=== PATIENT | male | born 1940 | race Caucasian/White ===

== ENCOUNTER 2016-11-15 10:14 | Emergency (ER) | payer OTHER, BC ==
[~2016-11-15] VITALS: Ht 170.2 cm; Wt 102.6 kg
[~2016-11-15 10:14] MED LIST: EPLERENONE25 MG PO; FLOMAX0.4 MG PO; FLONASE16 G1 BOTH NARES; INDOMETHACIN25 MG PO; LEVOTHYROXINE88 MCG PO; LIPITOR80 MG PO; LISINOPRIL20 MG PO; PAXIL40 MG PO; PROTONIX40 MG PO; ZEBETA5 MG PO; ZETIA10 MG PO
[2016-11-15] MEDS ORDERED: CYMBALTA20 MG PO (11:35)
[2016-11-15 12:36] LABS: HEMATOCRIT 39.5 % (38.0-50.0); MCH 29.5 PG (29.0-34.0); MCHC 32.9 G/DL (30.0-36.0); MCV 89.8 FL (86-99); MEAN PLAT.VOLUME 11.1 uM^3 (9.0-12.4); PLATELET COUNT 193 K/uL (156-360)
[2016-11-15 12:48] LABS: TROP-I INTERPRETATION NEGATIVE; TROPONIN-I 0.01 ng/mL (0.0-0.30)
[2016-11-15 13:16] LABS: ANION GAP 10 MEQ/L (2-14); CHLORIDE 104 MEQ/L (99-109); GFR ESTIMATE (CALCULATED) 48 mL/min/; GLUCOSE 135 mg/dL (70-99); POTASSIUM 3.9 MEQ/L (3.7-5.4); SAMPLE HEMOLYSIS CHECK 0; SAMPLE ICTERIC CHECK 0; SAMPLE LIPEMIA CHECK 0; SODIUM 141 MEQ/L (136-147); UREA NITROGEN (BUN) 22 mg/dL (9-23)
[2016-11-15] MEDS ORDERED: AUGMENTIN875 MG PO (13:47)
[2016-11-15 13:50] VITALS: BP 126/73
== END 2016-11-15 14:08 | disposition home or self-care (01) ==
LOC: EME 10:14
PROVIDERS: Emergency Medicine
DX: J40 Bronchitis, not specified as acute or chronic (principal); T36.8X5A Adverse effect of other systemic antibiotics, initial encounter; M25.511 Pain in right shoulder; M25.512 Pain in left shoulder; I25.2 Old myocardial infarction; Z87.442 Personal history of urinary calculi; Z95.5 Presence of coronary angioplasty implant and graft; Z87.891 Personal history of nicotine dependence
CPT/HCPCS: 71020; 73030; 80048; 84484; 85027; 93005; 99281; 99284

== ENCOUNTER 2016-11-19 17:05 | Inpatient (IN) | payer OTHER, BC ==
[~2016-11-19] VITALS: Ht 170.2 cm; Wt 109.9 kg
[~2016-11-19 17:05] MED LIST changes: +AUGMENTIN875 MG PO; +CYMBALTA20 MG PO
[2016-11-19 18:43] LABS: HEMATOCRIT 36.9 % (38.0-50.0); MCH 29.4 PG (29.0-34.0); MCHC 33.1 G/DL (30.0-36.0); MCV 88.9 FL (86-99); MEAN PLAT.VOLUME 10.1 uM^3 (9.0-12.4); PLATELET COUNT 251 K/uL (156-360); RBC DIS.WIDTH-CV 13.7 % (11.8-14.6); RED BLOOD COUNT 4.15 M/uL (4.00-5.50); WHITE BLOOD COUNT 18.3 K/uL (4.1-10.2)
[2016-11-19 18:58] LABS: CHLORIDE 104 mEq/L (99-109); SODIUM 137 mEq/L (136-147)
[2016-11-19 18:59] LABS: POTASSIUM 4.7 mEq/L (3.7-5.4)
[2016-11-19 19:00] LABS: GLUCOSE 135 mg/dL (70-99)
[2016-11-19 19:01] LABS: ANION GAP 12 MEQ/L (2-14)
[2016-11-19 19:04] LABS: GFR ESTIMATE (CALCULATED) 45 mL/min/
[2016-11-19 19:07] LABS: UREA NITROGEN (BUN) 35 mg/dL (9-23)
[2016-11-19 21:28] LABS: TROP-I INTERPRETATION NEGATIVE; TROPONIN-I 0.01 ng/mL (0.0-0.30)
[2016-11-19] MEDS ORDERED: CYMBALTA60 MG PO (23:21)
[2016-11-19] MEDS ORDERED: LO-DOSE ASPIRIN81 M2 PO (23:22)
[2016-11-20 06:32] VITALS: BP 107/60
[2016-11-20 06:36] LABS: EOSINOPHIL (%) 0.4 % (0-5); EOSINOPHIL COUNT 0.1 K/uL (0-0.3); IMMATURE GRANULOCYTE (%) 0.3 % (0.0-0.7); IMMATURE GRANULOCYTE COUNT 0.5 K/uL; LYMPHOCYTE COUNT 0.9 K/uL (1.0-2.8); MCH 30.1 PG (29.0-34.0); MCHC 34.1 G/DL (30.0-36.0); MCV 88.3 FL (86-99); MEAN PLAT.VOLUME 10.1 uM^3 (9.0-12.4); MONOCYTE COUNT 0.6 K/uL (0-0.8); NEUTROPHIL (%) 89.2 % (45-76); NEUTROPHIL COUNT 13.7 K/uL (1.8-6.4); PLATELET COUNT 224 K/uL (156-360); RBC DIS.WIDTH-SD 44.5 % (39-53); RED BLOOD COUNT 3.85 M/uL (4.00-5.50); WHITE BLOOD COUNT 15.3 K/uL (4.1-10.2)
[2016-11-20 06:50] LABS: CHLORIDE 104 mEq/L (99-109); POTASSIUM 4.6 mEq/L (3.7-5.4); SODIUM 135 mEq/L (136-147)
[2016-11-20 06:51] LABS: GLUCOSE 232 mg/dL (70-99)
[2016-11-20 06:53] LABS: ANION GAP 11 MEQ/L (2-14)
[2016-11-20 06:55] LABS: GFR ESTIMATE (CALCULATED) 45 mL/min/
[2016-11-20 06:56] LABS: UREA NITROGEN (BUN) 35 mg/dL (9-23)
[2016-11-20 11:46] VITALS: BP 123/64
[2016-11-20 14:26] LABS: ADD MIUA? YES; BILIRUBIN NEGATIVE; BLOOD TRACE; COLOR YELLOW ((YELLOW)); GLUCOSE (STRIP) NEGATIVE; KETONES NEGATIVE; LEUKOCYTES TRACE; NITRITE NEGATIVE; PROTEIN (STRIP) NEGATIVE; SPECIFIC GRAVITY 1.011 (1.000-1.030); UROBILINOGEN 0.2 MG/DL (0.2-1.0)
[2016-11-20 14:33] LABS: INFLUENZA A VIRAL ANTIGEN NEGATIVE; INFLUENZA B VIRAL ANTIGEN NEGATIVE
[2016-11-20 15:04] LABS: BACTERIA RARE; CASTS NONE SEEN /LPF; CRYSTALS NONE SEEN; EPITHELIAL CELLS RARE; MUCUS NONE SEEN; RED BLOOD CELLS 0-5 /HPF (0-5); UCUL ADDED? NO; WHITE BLOOD CELLS 0-5 /HPF (0-5)
[2016-11-20 16:10] VITALS: BP 126/70
[2016-11-20 20:00] VITALS: BP 132/71
[2016-11-20 20:14] LABS: C DIFF TOXIN NEGATIVE (NEGATIVE)
[2016-11-20 20:26] LABS: PROBE CHECK PASS; SPECIMEN PROCESSING CONTROL PASS
[2016-11-20 23:14] VITALS: BP 110/61
[2016-11-21 04:17] VITALS: BP 126/62
[2016-11-21 07:11] LABS: EOSINOPHIL (%) 0 % (0-5); IMMATURE GRANULOCYTE (%) 0.6 % (0.0-0.7); IMMATURE GRANULOCYTE COUNT 0.1 K/uL; LYMPHOCYTE COUNT 1.5 K/uL (1.0-2.8); MCH 28.9 PG (29.0-34.0); MCHC 32.4 G/DL (30.0-36.0); MCV 89.2 FL (86-99); MEAN PLAT.VOLUME 10.1 uM^3 (9.0-12.4); MONOCYTE (%) 2.6 % (3-12); MONOCYTE COUNT 0.5 K/uL (0-0.8); NEUTROPHIL (%) 89.5 % (45-76); NEUTROPHIL COUNT 18.8 K/uL (1.8-6.4); PLATELET COUNT 265 K/uL (156-360); RBC DIS.WIDTH-CV 14.1 % (11.8-14.6); RBC DIS.WIDTH-SD 45.9 % (39-53); RED BLOOD COUNT 3.81 M/uL (4.00-5.50)
[2016-11-21 07:21] LABS: ALKALINE PHOSPHATASE 113 IU/L (3-129); ANION GAP 12 MEQ/L (2-14); CHLORIDE 104 MEQ/L (99-109); GFR ESTIMATE (CALCULATED) 52 mL/min/; GLUCOSE 139 mg/dL (70-99); POTASSIUM 4.4 MEQ/L (3.7-5.4); SAMPLE HEMOLYSIS CHECK 0; SAMPLE ICTERIC CHECK 0; SAMPLE LIPEMIA CHECK 0; SODIUM 138 MEQ/L (136-147); TOTAL BILIRUBIN 0.5 MG/DL (0.0-1.0); UREA NITROGEN (BUN) 42 mg/dL (9-23)
[2016-11-21 07:47] LABS: INTERNAL CONTROL VALID? YES
[2016-11-21 07:48] VITALS: BP 106/60
[2016-11-21 08:40] VITALS: BP 159/69
[2016-11-21 12:35] VITALS: BP 125/58
[2016-11-21 16:00] VITALS: BP 107/64
[2016-11-21 19:54] VITALS: BP 112/69
[2016-11-22] VITALS: BP 109/63
[2016-11-22 03:38] VITALS: BP 97/49
[2016-11-22 06:31] LABS: EOSINOPHIL (%) 0 % (0-5); HEMATOCRIT 33.3 % (38.0-50.0); IMMATURE GRANULOCYTE (%) 0.6 % (0.0-0.7); IMMATURE GRANULOCYTE COUNT 0.1 K/uL; LYMPHOCYTE COUNT 1.4 K/uL (1.0-2.8); MCH 28.6 PG (29.0-34.0); MCHC 32.1 G/DL (30.0-36.0); MEAN PLAT.VOLUME 9.8 uM^3 (9.0-12.4); MONOCYTE (%) 5.9 % (3-12); MONOCYTE COUNT 1.2 K/uL (0-0.8); NEUTROPHIL (%) 86.2 % (45-76); NEUTROPHIL COUNT 17.2 K/uL (1.8-6.4); PLATELET COUNT 254 K/uL (156-360); RBC DIS.WIDTH-CV 14.1 % (11.8-14.6); RBC DIS.WIDTH-SD 46.5 % (39-53); RED BLOOD COUNT 3.74 M/uL (4.00-5.50); WHITE BLOOD COUNT 19.9 K/uL (4.1-10.2)
[2016-11-22 06:51] LABS: ALKALINE PHOSPHATASE 109 IU/L (3-129); ANION GAP 6 MEQ/L (2-14); CHLORIDE 105 MEQ/L (99-109); GFR ESTIMATE (CALCULATED) 52 mL/min/; GLUCOSE 104 mg/dL (70-99); POTASSIUM 5.4 MEQ/L (3.7-5.4); SAMPLE HEMOLYSIS CHECK 0; SAMPLE ICTERIC CHECK 0; SAMPLE LIPEMIA CHECK 0; SODIUM 135 MEQ/L (136-147); TOTAL BILIRUBIN 0.5 MG/DL (0.0-1.0); UREA NITROGEN (BUN) 46 mg/dL (9-23)
[2016-11-22 08:40] VITALS: BP 106/56
[2016-11-22] MEDS ORDERED: ADVAIR HFA120 INHALA IH (09:35)
[2016-11-22] MEDS ORDERED: LIDOCAINE700 MG TD (09:35)
[2016-11-22] MEDS ORDERED: CEFDINIR300 MG PO (09:35)
[2016-11-22] MEDS ORDERED: SPIRIVA RESPIMAT4 GM IH (09:36)
== END 2016-11-22 13:40 | disposition home or self-care (01) | DRG 191 ==
LOC: EME 17:05 → EXP 17:05 → EDOF 11-20 00:47 → 2EAST 11-20 06:22
PROVIDERS: Hospitalist; Nurse Practitioner Family
DX: J44.1 Chronic obstructive pulmonary disease with (acute) exacerbation (principal); I42.9 Cardiomyopathy, unspecified; F33.9 Major depressive disorder, recurrent, unspecified; I48.2 Chronic atrial fibrillation; I25.10 Atherosclerotic heart disease of native coronary artery without angina pectoris; I12.9 Hypertensive chronic kidney disease with stage 1 through stage 4 chronic kidney disease, or unspecified chronic kidney disease; N18.3 Chronic kidney disease, stage 3 (moderate); E78.5 Hyperlipidemia, unspecified; I25.2 Old myocardial infarction; Z95.5 Presence of coronary angioplasty implant and graft; Z95.0 Presence of cardiac pacemaker
CPT/HCPCS: 71020; 71250; 80048; 80053; 81003; 83605; 83880; 84484; 85025; 85027; 87040; 87070; 87205; 87449; 87493; 87502; 93005; 93971; 94640; 94640 76; 99202; 99281; 99285; J0456; J0696; J1644; J2930; J7030; J7050